=== PATIENT | male | born 1955 | race Caucasian/White ===

== ENCOUNTER 2019-11-10 13:56 | Emergency (ER) | payer OTHER, MEDICARE, SELFPAY ==
[2019-11-10 14:02] VITALS: BP 133/91; PULSE 98; RESP 17; TEMP 36.8; O2SAT 95; BMI 24.7
--- NOTE | 2019-11-10 14:32 | XR_ITS ---
WS: [id number] LEFT KNEE: 3 VIEW(S) TECHNIQUE: AP, oblique(s) and lateral. HISTORY: injury COMPARISON: 01/09/2016 Several screws are present at the LEFT knee joint. Posttraumatic osteoarthritis involving the medial and lateral compartments and the patellofemoral compartment. Hypertrophic osteophytes with joint spac e narrowing. No acute fractures are identified. Small suprapatellar effusion. No soft tissue abnormality. XR/XR knee LT 3V* [id number] IMPRESSION: Tricompartment osteoarthritis and postsurgical changes are stable. No fracture.
[2019-11-10 15:50] VITALS: RESP 17
--- NOTE | 2019-11-10 16:11 | ED_ITS ---
HPI - Extremity Injury (Lower) General: Chief Complaint: Extremity Injury, Lower Stated Complaint: LEFT KNEE PAIN Time Seen by Provider: 11/10/19 15:56 Source: patient Mode of arrival: ambulatory Limitations: no limitations History of Present Illness: HPI Narrative: Patient is a 63-year-old male here for complaints of left knee pain. Patient states he chronically has left knee pain and has been told previously that he needs a total knee replacement. Patient has had previous surgery on the knee already. He states earlier today he accidentally twisted the knee and is now having increased pain. States he is not bearing weight very well on the extremity. He has no other complaints at this time. Review of Systems Musc: Reports: joint pain; Denies: extremity pain, extremity swelling or joint swelling Neuro: Denies: numbness in extremities or sensory changes PFS ED PFSH: Medical History (Updated 11/10/19 @ 16:12 by MICHEAL Carranza) Alcohol use disorder, moderate, in sustained remission Major depressive disorder, recurrent severe without psychotic features Nicotine dependence, cigarettes, with other nicotine-induced disorders Obstructive sleep apnea (adult) (pediatric) Social History (Updated 07/07/19 @ 12:56 by Gay Escalera LPN) Smoking and tobacco status: current every day smoker cigarettes Quit status (tobacco): has tried quititng Smoking risk assessment/counseling performed?: Yes Physical Exam Const: COMMON NORMALS: no acute distress, average body habitus, patient oriented x3, no limitations, healthy appearing, alert and well nourished Extremity: GENERAL: Yes normal exam except as noted OTHER: TTP to anterior L knee; knee is arthritic; no swelling/effusion noted; no redness/warmth; NV intact Neuro: COMMON NORMALS: patient oriented x3, moves all extremities, no focal motor deficits and no sensory deficits noted SENSORIUM/ORIENTATION: Yes alert GAIT: Yes Unable to assess gait Skin: COMMON NORMALS: no rashes or lesions noted GENERAL SKIN EXAM: no rashes or lesions noted Course Vital Signs: Vital signs: Vital Signs Temperature 98.3 F 11/10/19 14:02 Pulse Rate 86 11/10/19 16:48 Respiratory Rate 16 11/10/19 16:48 Blood Pressure 129/88 11/10/19 16:48 Pulse Oximetry 95 11/10/19 16:48 MDM - Extremity Injury (Lower) Imaging Data^: L knee XR: Radiologist's impression: [address] [place] [address] XRay Report Signed Patient: Epi Macias Unit #: [id number] : [id number] Age/Sex: 63 / M ADM Date: 11/10/19 Loc: ER Room/Bed: Attending Dr: Ordering Provider/Ordering MD: Marci Lockwood Date of Service: 11/10/19 Procedure(s): XR knee LT 3V* [id number] Accession Number(s): [id number] Report Number: [id number] WS: [id number] LEFT KNEE: 3 VIEW(S) TECHNIQUE: AP, oblique(s) and lateral. HISTORY: injury COMPARISON: 01/09/2016 Several screws are present at the LEFT knee joint. Posttraumatic osteoarthritis involving the medial and lateral compartments and the patellofemoral compartment. Hypertrophic osteophytes with joint space narrowing. No acute fractures are identified. Small suprapatellar effusion. No soft tissue abnormality. XR/XR knee LT 3V* [id number] IMPRESSION: Tricompartment osteoarthritis and postsurgical changes are stable. No fracture. Dictated By: Juana Walters DO Signed By: uJana Walters DO Signed Date/Time: 11/10/191513 DD/ 12 Discharge Plan Discharge Patient Disposition: Home, Self-Care Clinical Impression: Injury of knee, left Qualifiers: Encounter type: initial encounter Qualified Code(s): S89.92XA - Unspecified injury of left lower leg, initial encounter Condition: Stable Prescriptions: New tramadol 50 mg tablet 50 mg PO Q6H PRN (Reason: pain) Qty: 10 RF: 0 No Action chlorthalidone 25 mg tablet 25 mg PO QAM RF: 0 amlodipine 5 mg tablet 5 mg PO DAILY RF: 0 Aspir-81 81 mg Tablet,Delayed Release (Dr/Ec) 81 mg PO DAILY RF: 0 potassium chloride 20 mEq tablet,ER particles/crystals 40 meq PO DAILY RF: 0 tamsulosin 0.4 mg capsule 0.4 mg PO BEDTIME RF: 0 metoprolol tartrate 50 mg tablet See Rx Instructions .ROUTE .COMPLEX RF: 0 tacrolimus 1 mg capsule 2 mg PO BID RF: 0 trazodone 100 mg tablet 150 mg PO BEDTIME RF: 0 Discharge Orders: Discharge Order (Routine); Ordered 11/10/19 Ordered By: Marci Lockwood Referrals: Stanton Quinteros [Primary Care Provider] - Discharge Activity: Use walker/crutches as instructed Activity Restrictions/Additional Instructions: Keep appointment with Dr. Demarco for later next month for evaluation. You can follow up with primary care in the meantime for any further concerns. Use ROSIO wrap/crutches as needed. Weight bearing as tolerated. 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
[2019-11-10 16:48] VITALS: BP 129/88; PULSE 86; RESP 16; O2SAT 95
== END 2019-11-10 16:49 | disposition home or self-care (01) ==
PROVIDERS: Emergency Provider Physician Assistant; PCP Internal Medicine
DX: M17.32 Unilateral post-traumatic osteoarthritis, left knee (principal); F17.210 Nicotine dependence, cigarettes, uncomplicated
CPT/HCPCS: 12345; 73562; 99282; 99283; E0114

== ENCOUNTER → 2019-12-06 10:17 | Outpatient (BNVA) | payer MEDICARE, SELFPAY | PROVIDERS: PCP Internal Medicine; Visit Provider Specialist | DX: M25.562 Pain in left knee (principal); M25.561 Pain in right knee; Z94.4 Liver transplant status | CPT/HCPCS: 73560; 73565 ==

== ENCOUNTER → 2021-10-15 08:58 | Outpatient (BNVA) | payer OTHER, SELFPAY | PROVIDERS: PCP Family Medicine; Referring Provider Family Medicine; Visit Provider Surgery | DX: R13.10 Dysphagia, unspecified (principal); K63.5 Polyp of colon; K43.2 Incisional hernia without obstruction or gangrene | CPT/HCPCS: 99204 ==

== ENCOUNTER 2021-11-13 12:55 | Emergency (ER) | payer OTHER, MEDICARE, SELFPAY ==
[2021-11-13 13:01] VITALS: BP 136/88; PULSE 89; RESP 18; TEMP 36.4; O2SAT 95; BMI 27.8
--- NOTE | 2021-11-13 13:30 | W.ED.UPPEXIN ---
HPI - Extremity Injury (Upper) General: Chief Complaint: Extremity Injury, Upper Stated Complaint: fell, left elbow pain Time Seen by Provider: 11/13/21 13:08 Source: patient Mode of arrival: ambulatory Limitations: no limitations History of Present Illness: Patient is a nice 65-year-old female presents to ED today for evaluation of a left elbow injury that he sustained yesterday after tripping over his dog. Patient has noticed swelling around the joint. He is not having any numbness, tingling, loss of sensation. No color or temperature changes noted to the extremity. He has no other injuries or complaints at this time. MD complaint: injury to: left and elbow Onset (ago): day(s) (yesterday) Place: home Severity: moderate Relieving factors: immobilization Exacerbating factors: movement of extremity Context: fall Associated symptoms: Reports no associated symptoms; Denies neck pain or weakness in extremities Review of Systems Musc: Reports: joint pain (L elbow), joint swelling (L elbow) and limited range of motion; Denies: neck pain, back pain, extremity pain, extremity swelling, joint redness or joint warmth Neuro: Denies: numbness in extremities, weakness in extremities or sensory changes PFS ED PFSH: Medical History Alcohol use disorder, moderate, in sustained remission Colon polyps COPD (chronic obstructive pulmonary disease) History of liver cancer Hypertension Incisional hernia Major depressive disorder, recurrent severe without psychotic features NHL (non-Hodgkin's lymphoma) received chemotherapy Nicotine dependence, cigarettes, with other nicotine-induced disorders Obstructive sleep apnea (adult) (pediatric) Psychiatric care Stage 3 chronic kidney disease Surgical History History of colonoscopy 5 years History of esophagogastroduodenoscopy 5 years History of left hip replacement History of open reduction and internal fixation (ORIF) procedure History of repair of anterior cruciate ligament of left knee History of right knee joint replacement Liver transplant recipient Social History Smoking and tobacco status: former smoker Quit status (tobacco): has quit using tobacco Smoking risk assessment/counseling performed?: Yes Alcohol intake: former Physical Exam Const: COMMON NORMALS: no acute distress, patient oriented x3, no limitations, alert and well nourished GENERAL APPEARANCE: cooperative Extremity: COMMON NORMALS: capillary refill normal GENERAL: Yes normal exam except as noted LEFT UPPER EXTREMITY: Yes elbow joint (TTP over radial head; joint effusion present; cannot fully extend) Left elbow: Yes neurovascular exam (normal) Neuro: COMMON NORMALS: patient oriented x3, moves all extremities, no focal motor deficits and no sensory deficits noted SENSORIUM/ORIENTATION: Yes alert Skin: COMMON NORMALS: no rashes or lesions noted GENERAL SKIN EXAM: no rashes or lesions noted TRAUMA: no lacerations or abrasions Course Vital Signs: Vital signs: Vital Signs Temperature 97.5 F L 11/13/21 13:01 Pulse Rate 89 11/13/21 13:01 Respiratory Rate 18 11/13/21 13:01 Blood Pressure 136/88 11/13/21 13:01 Pulse Oximetry 95 11/13/21 13:01 MDM - Extremity Injury (Upper) Medical Decision Making Patient has a left radial head fracture. We will place him in a splint/sling and have him follow-up with orthopedics. Lab Data Radiology Impressions Elbow X-Ray 11/13/21 13:37 Impression: 1. Minimal impacted fracture of the left radial head. 2. Positive posterior fat pad sign and winged anterior fat pad sign Discharge Plan Discharge Patient Disposition: Home Clinical Impression: Closed fracture of head of left radius Qualifiers: Encounter type: initial encounter Fracture alignment: nondisplaced Qualified Code(s): S52.125A - Nondisplaced fracture of head of left radius, initial encounter for closed fracture Condition: Stable Prescriptions: New hydrocodone-acetaminophen 5-325 mg tablet 1 tab PO Q6H PRN (Reason: pain) Qty: 14 0RF No Action cyclobenzaprine 10 mg tablet 10 mg PO TID 0RF fluorouracil 5 % cream 1 applic topical BID 0RF metoprolol tartrate 50 mg tablet 50 mg PO BID 0RF omeprazole 40 mg capsule,delayed release(DR/EC) 40 mg PO DAILY 0RF tamsulosin 0.4 mg capsule 0.4 mg PO DAILY 0RF albuterol sulfate 90 mcg/actuation aerosol powdr breath activated 2 inh INHALATION Q6H PRN0RF budesonide-formoterol [Symbicort] 80-4.5 mcg/actuation HFA aerosol inhaler 2 puff INHALATION Q12H 0RF furosemide 20 mg tablet 20 mg PO QAM 0RF fluoxetine 20 mg capsule 60 mg PO DAILY 90 Days Qty: 270 0RF trazodone 100 mg tablet See Rx Instructions .ROUTE .COMPLEX 90 Days Qty: 135 0RF Dose Instruction: TAKE 1 1/2 TABLET BY MOUTH DAILY AT BEDTIME Rx Instructions: TAKE 1 1/2 TABLET BY MOUTH DAILY AT BEDTIME chlorthalidone 25 mg tablet 25 mg PO QAM 0RF Aspir-81 81 mg Tablet,Delayed Release (Dr/Ec) 81 mg PO DAILY 0RF potassium chloride 20 mEq tablet,ER particles/crystals 40 meq PO DAILY 0RF metoprolol tartrate 50 mg tablet See Rx Instructions .ROUTE .COMPLEX 0RF Rx Instructions: 50 MG PO IN THE AM AND 75MG PO QPM tacrolimus 1 mg capsule 2 mg PO BID 0RF amlodipine 5 mg tablet 10 mg PO DAILY 0RF Rx Instructions: PT STATES HE HAS STARTED TAKING ONE TAB EVERY OTHER DAY Discharge Orders: Discharge ED (Routine); Ordered 11/13/21 Ordered By: Marci Lockwood Referrals: Daphne Gauthier MD [Primary Care Provider] - Patient Instructions: Elbow Fracture (DC) Coding Level of Care Code ED Communications Department Head for Chg Fwd Exam Expanded Problem Focused
--- NOTE | 2021-11-13 13:37 | XR_ITS ---
WS: [id number] Left elbow, 3 views, 11/13/2021 Clinical Data: trauma, swelling Comparison: None. Findings: There may be a minimally impacted fracture of the left radial head. There is a positive posterior fat pad sign. The olecranon and distal humerus appear normal. There is a winged anterior fat pad sign which can be seen with trauma XR/XR elbow LT min 3V* [id number] Impression: 1. Minimal impacted fracture of the left radial head. 2. Positive posterior fat pad sign and winged anterior fat pad sign
--- NOTE | 2021-11-14 14:09 | DCPLANNER ---
Addendum entered by Makenzie Hlal 11/23/21 06:24: Patient had a follow up appointment scheduled for 11.20.21 with ortho - patient did attend appointment. Original Note: customer development manager had message to schedule a follow up appointment for patient with ortho. customer development manager sent patients information to the front office staff at ortho. Patients information will be printed and reviewed. Clinic will call patient with appointment information.
== END 2021-11-13 14:55 | disposition home or self-care (01) ==
PROVIDERS: Emergency Provider Physician Assistant; PCP Family Medicine
DX: S52.125A Nondisplaced fracture of head of left radius, initial encounter for closed fracture (principal); M25.522 Pain in left elbow; W01.0XXA Fall on same level from slipping, tripping and stumbling without subsequent striking against object, initial encounter
CPT/HCPCS: 73080; 99283

== ENCOUNTER 2021-11-20 11:40 | Outpatient (CLI) | payer OTHER, MEDICARE, SELFPAY ==
--- NOTE | 2021-11-20 11:54 | CT_ITS ---
WS: [id number] CT CHEST WITH INTRAVENOUS CONTRAST HISTORY: DYSPNEA ON EXERTION/ELEVATED D DIMER TECHNIQUE: Contiguous 5 mm axial imaging performed on the thorax. Coronal and sagittal reformats are submitted. All CT scans at [facility] use at least one of these dose optimization techniques: automated exposure control; mA and/or kV adjustment per patient size (includes targeted exams where dose is matched to clinical indication); or iterative reconstruction. CONTRAST: Omnipaque 300; 50 mL IV. DLP: 775.01 mGy.cm COMPARISON: 09/18/2011 Lungs and central airway: New well-circumscribed noncalcified 6 mm nodule RIGHT lower lobe. There is an additional adjacent 2 millimeter nodule which is also noncalcified. Mild pulmonary hyperexpansion from emphysema. Pleura: Normal. No pleural effusion. Heart and pericardium: Normal size heart with no pericardial effusion. Mediastinum and renetta: No mediastinal or hilar adenopathy. There is mild diffuse esophageal wall thick ening. There is also fluid in the mid to distal esophagus. Vessels: Mild atherosclerotic plaque within the aorta and proximal great vessels. Normal size pulmona ry artery. Chest wall and lower neck: No soft tissue masses. Upper abdomen: Prior cholecystectomy. Normal RIGHT adrenal gland. Very mild thickening of the LEFT ad renal gland. Prior hepatic transplant. Spleen is enlarged but incompletely visualized. Osseous structures: No destructive process. CT/CT chest w con* [id number] IMPRESSION: 1. New, noncalcified 6 mm RIGHT lower lobe pulmonary nodule with an adjacent 2 mm nodule. These nodules were not present in 2012. Recommend PET/CT imaging o r short-term chest CT follow-up in 3-4 months. 2. No adenopathy. 3. Mild diffuse esophageal wall thickening and fluid in the esophagus. Probabl y from reflux disease and esophagitis. 4. No adenopathy.
[2021-11-20 12:38] LABS: Blood Urea Nitrogen 20 mg/dL (8-23); Glomerular Filtration Rate 55.1 mL/min (90-130)
[2021-11-20] MEDS: iohexol 300 mg/mL 100 mL Btl IV (12:56)
== END 2021-11-20 11:41 | disposition home or self-care (01) ==
LOC: RAD 11:45
PROVIDERS: PCP Family Medicine; Visit Provider Family Medicine
DX: Z01.89 Encounter for other specified special examinations (principal); R06.09 Other forms of dyspnea; R91.8 Other nonspecific abnormal finding of lung field; S50.02XA Contusion of left elbow, initial encounter; W01.0XXA Fall on same level from slipping, tripping and stumbling without subsequent striking against object, initial encounter
CPT/HCPCS: 71260; 73080; 82565; 84520; 99203; 99213

== ENCOUNTER → 2021-12-05 12:44 | Outpatient (BNVA) | payer OTHER, SELFPAY | PROVIDERS: PCP Family Medicine; Visit Provider Internal Medicine Cardiovascular Disease | DX: R06.02 Shortness of breath (principal); I12.9 Hypertensive chronic kidney disease with stage 1 through stage 4 chronic kidney disease, or unspecified chronic kidney disease; F17.200 Nicotine dependence, unspecified, uncomplicated; N18.30 Chronic kidney disease, stage 3 unspecified; Z94.4 Liver transplant status; G47.33 Obstructive sleep apnea (adult) (pediatric); J41.0 Simple chronic bronchitis; M17.12 Unilateral primary osteoarthritis, left knee | CPT/HCPCS: 99204 ==

== ENCOUNTER 2022-01-16 06:54 | Day surgery (SDC) | payer OTHER, SELFPAY ==
[2022-01-11 12:37] VITALS: BMI 27.1
[2022-01-16 07:13] VITALS: BP 153/94; PULSE 78; RESP 18; TEMP 36.4; O2SAT 94
[2022-01-16] MEDS: sodium chloride 0.9% 1,000 ML 30 ML IV (07:27)
--- NOTE | 2022-01-16 07:47 | ANES.PREANE2 ---
Pre-Anesthetic Assessment Height/Weight: Height 1.8 m Weight 88.451 kg Temp Pulse Resp BP Pulse Ox O2 Del Method 97.5 F L 78 18 153/94 94 01/16/22 07:13 01/16/22 07:13 01/16/22 07:13 01/16/22 07:13 01/16/22 07:13 01/16/22 07:13 Preop Diagnosis: upper gi symptoms Operation Date: 01/16/22 08:30 Proposed Procedures p EGD Dilation W/ Balloon [id number]/[id number]/k63.5/r13.10(Not Applicable) - Norberto Rashid MD s Colonoscopy(Not Applicable) - Norberto Rashid MD Familial anesthetic complications: none Was Beta Tiara taken within 24 hours: Yes Was Clonidine taken within 24 hours: N/A Last intake: Intake Last Liquid Date 01/15/22 Last Liquid Time 22:00 Last Solid Date 01/14/22 Last Solid Time 19:00 Social Alcohol and No tobacco Exam alert, oriented x 3, clear to auscultation bilaterally and regular rate & rhythm Airway Submandibular: within normal limits Cervical ROM: within normal limits Mallampati: Class II Dentition: false Pulmonary Chronic Obstructive Pulmonary Disease, Sleep Apnea and Shortness of Breath CV/HEM Hypertension NHL Chronic Renal Insufficiency Hepatic Hx of liver cancer s/p liver transplant GI Gastroesophageal Reflux Disease (Well controlled ) Metabolic None reported Musc/skel Osteoarthritis/DJD Neuropsych Depression Anesthetic Plan ASA status: 3 Anesthesia: Anesthesia Evaluation, General and MAC Other: I discussed with the patient risks, goals, and benefits of MAC and general anesthesia. We discussed spectrum of MAC anesthesia including conversion to general as well as possibility of recall of intraoperative stimuli including discomfort/pain. Patient agrees to proceed with MAC. Risk of > 500 ml blood loss (7ml/kg in children): No Medications/Allergies Home Medications Medication Instructions Recorded Confirmed Last Taken Type aspirin 81 mg tablet,delayed 81 mg PO DAILY 11/10/19 01/16/22 01/15/22 History release (Aspir-) tacrolimus 1 mg capsule, 2 mg PO BID 11/10/19 01/16/22 01/16/22 History immediate-release albuterol sulfate 90 mcg/actuation 2 inh inhalation Q6H PRN Allergy 12/06/19 01/16/22 01/16/22 History breath activated powder inhaler Symptoms furosemide 20 mg tablet 20 mg PO QAM 09/10/21 01/16/22 01/16/22 History amlodipine 5 mg tablet 10 mg PO DAILY 10/15/21 01/16/22 01/16/22 History cholecalciferol (vitamin D3) 25 25 mcg PO DAILY 12/05/21 01/16/22 01/15/22 History mcg (1,000 unit) capsule fluticasone 250 mcg-salmeterol 50 1 inh inhalation BID 12/05/21 01/16/22 01/16/22 History mcg/dose blistr powdr for inhalation (Wixela Inhub) folic acid 1 mg tablet 1 mg PO DAILY 12/05/21 01/16/22 01/16/22 History metoprolol tartrate 50 mg tablet 100 mg PO BID 12/05/21 01/16/22 01/16/22 History potassium chloride 20 mEq 40 meq PO BID 12/05/21 01/16/22 01/16/22 History tablet,extended release(part/cryst) fluoxetine 40 mg capsule 80 mg PO DAILY 90 days #180 caps 12/12/21 01/16/22 01/16/22 Rx trazodone 100 mg tablet See Rx Instructions .Route 12/12/21 01/16/22 01/15/22 Rx .COMPLEX 90 days #135 tabs Allergies Allergy/AdvReac Type Severity Reaction Status Date / Time No Known Allergies Allergy Verified 01/16/22 07:09 Current Medications Generic Name Dose Route Start Last Admin Trade Name Freq PRN Reason Stop Dose Admin Sodium Chloride 1,000 mls @ 30 mls/hr 01/16/22 07:15 01/16/22 07:27 Sodium Chloride 0.9% IV 01/17/22 07:14 30 mls/hr .Q24H KANG Administration PFSH Anesthesia Medical History Alcohol use disorder, moderate, in sustained remission Colon polyps COPD (chronic obstructive pulmonary disease) History of liver cancer Hypertension Incisional hernia Major depressive disorder, recurrent severe without psychotic features NHL (non-Hodgkin's lymphoma) received chemotherapy Nicotine dependence, cigarettes, with other nicotine-induced disorders Obstructive sleep apnea (adult) (pediatric) Psychiatric care Skin cancer Stage 3 chronic kidney disease Surgical History History of colonoscopy 5 years History of esophagogastroduodenoscopy 5 years History of left hip replacement History of open reduction and internal fixation (ORIF) procedure History of repair of anterior cruciate ligament of left knee History of right knee joint replacement History of surgery on lower extremity femur Liver transplant recipient S/P knee replacement S/P skin cancer resection Family History Brother CAD (coronary artery disease) Hypertension Sister CAD (coronary artery disease) Hypertension Social History Smoking and tobacco status: current every day smoker (trying to quit) Smoking risk assessment/counseling performed?: Yes Alcohol intake: former Data Anesthesia Cardiac Studies: No Data to Display
--- NOTE | 2022-01-16 08:32 | W.PM.OPSFHP ---
Same Day Surgery H&P Indication for Procedure/HPI DATE OF PROCEDURE: January 16, 2022 CHIEF COMPLAINT/INDICATIONFOR SURGICAL PROCEDURE: egd/colon PREOP DIAGNOSIS: upper gi symptoms PLANNED PROCEDURE: Operation Date: 01/16/22 08:30 Proposed Procedures p EGD Dilation W/ Balloon [id number]/k63.5/r13.10(Not Applicable) - Norberto Rashid MD s Colonoscopy(Not Applicable) - Norberto Rashid MD Medications/Allergies* Home Medications Medication Instructions Recorded Confirmed Type aspirin 81 mg tablet,delayed 81 mg PO DAILY 11/10/19 01/16/22 History release (Aspir-) tacrolimus 1 mg capsule, 2 mg PO BID 11/10/19 01/16/22 History immediate-release albuterol sulfate 90 mcg/actuation 2 inh inhalation Q6H PRN Allergy 12/06/19 01/16/22 History breath activated powder inhaler Symptoms furosemide 20 mg tablet 20 mg PO QAM 09/10/21 01/16/22 History amlodipine 5 mg tablet 10 mg PO DAILY 10/15/21 01/16/22 History cholecalciferol (vitamin D3) 25 25 mcg PO DAILY 12/05/21 01/16/22 History mcg (1,000 unit) capsule fluticasone 250 mcg-salmeterol 50 1 inh inhalation BID 12/05/21 01/16/22 History mcg/dose blistr powdr for inhalation (Wixela Inhub) folic acid 1 mg tablet 1 mg PO DAILY 12/05/21 01/16/22 History metoprolol tartrate 50 mg tablet 100 mg PO BID 12/05/21 01/16/22 History potassium chloride 20 mEq 40 meq PO BID 12/05/21 01/16/22 History tablet,extended release(part/cryst) Allergies/Adverse Reactions Allergy/AdvReac Type Severity Reaction Status Date / Time No Known Allergies Allergy Verified 01/16/22 07:09 Current Medications: Generic Name Dose Route Start Last Admin Trade Name Freq PRN Reason Stop Dose Admin Sodium Chloride 1,000 mls @ 30 mls/hr 01/16/22 07:15 01/16/22 07:27 Sodium Chloride 0.9% IV 01/17/22 07:14 30 mls/hr .Q24H KANG Administration Pertinent History/Comorbid Conditions* Medical History (Updated 12/09/21 @ 15:16 by Rafaela Nieves MD) Alcohol use disorder, moderate, in sustained remission Colon polyps COPD (chronic obstructive pulmonary disease) History of liver cancer Hypertension Incisional hernia Major depressive disorder, recurrent severe without psychotic features NHL (non-Hodgkin's lymphoma) received chemotherapy Nicotine dependence, cigarettes, with other nicotine-induced disorders Obstructive sleep apnea (adult) (pediatric) Psychiatric care Skin cancer Stage 3 chronic kidney disease Surgical History (Updated 12/09/21 @ 15:16 by Rafaela Nieves MD) History of colonoscopy 5 years History of esophagogastroduodenoscopy 5 years History of left hip replacement History of open reduction and internal fixation (ORIF) procedure History of repair of anterior cruciate ligament of left knee History of right knee joint replacement History of surgery on lower extremity femur Liver transplant recipient S/P knee replacement S/P skin cancer resection Family History (Updated 12/05/21 @ 13:04 by Emilia Au RN) CAD (coronary artery disease) Brother Sister Hypertension Brother Sister Social History Smoking and tobacco status: current every day smoker (trying to quit) Smoking risk assessment/counseling performed?: Yes Alcohol intake: former Pertinent Exam Findings alert, oriented x 3 and regular rate & rhythm Recommendations Surgery/Procedure today Coding Level of Care Code 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
[2022-01-16 09:36] VITALS: BP 121/88; PULSE 75; RESP 14; TEMP 36.3; O2SAT 98
[2022-01-16 09:45] VITALS: BP 143/91; PULSE 78; RESP 18; O2SAT 98
--- NOTE | 2022-01-16 13:07 | ANE.PACU2 ---
Inpatient post-anesthesia follow up: Airway intact: Yes Vital signs: Temperature 97.3 F Pulse Rate 78 Respiratory Rate 18 Blood Pressure 143/91 Pulse Oximetry 98 Oxygen Delivery Me thod Room Air Oxygen Flow Rate Fraction of Inspir ed Oxygen Hydration adequate: Yes Nausea and vomiting: No Pain level: 1 Mental status: Baseline
== END 2022-01-16 10:00 | disposition home or self-care (01) ==
PROVIDERS: PCP Family Medicine; Visit Provider Surgery
PROC: 0DJD8ZZ Inspection of Lower Intestinal Tract, Via Natural or Artificial Opening Endoscopic (ICD-10-PCS; CPT 45378; 2022-01-16 08:30)
PROC: 0DJ08ZZ Inspection of Upper Intestinal Tract, Via Natural or Artificial Opening Endoscopic (ICD-10-PCS; CPT 43235; 2022-01-16 08:30)
DX: R13.10 Dysphagia, unspecified (principal); D12.2 Benign neoplasm of ascending colon; D12.4 Benign neoplasm of descending colon; D12.5 Benign neoplasm of sigmoid colon; K57.30 Diverticulosis of large intestine without perforation or abscess without bleeding; D12.8 Benign neoplasm of rectum; K29.50 Unspecified chronic gastritis without bleeding; B96.81 Helicobacter pylori [H. pylori] as the cause of diseases classified elsewhere; K22.70 Barrett's esophagus without dysplasia; K22.2 Esophageal obstruction; J44.9 Chronic obstructive pulmonary disease, unspecified; G47.30 Sleep apnea, unspecified; Z85.05 Personal history of malignant neoplasm of liver; Z94.4 Liver transplant status; K21.9 Gastro-esophageal reflux disease without esophagitis; G47.33 Obstructive sleep apnea (adult) (pediatric); Z92.21 Personal history of antineoplastic chemotherapy; I12.9 Hypertensive chronic kidney disease with stage 1 through stage 4 chronic kidney disease, or unspecified chronic kidney disease; N18.30 Chronic kidney disease, stage 3 unspecified
CPT/HCPCS: 43239; 45380; 45385; 88305; 88342; J2704; J7030

== ENCOUNTER → 2022-01-22 09:40 | Outpatient (BNVA) | payer OTHER, SELFPAY | PROVIDERS: PCP Family Medicine; Visit Provider Surgery | DX: Z09 Encounter for follow-up examination after completed treatment for conditions other than malignant neoplasm (principal) | CPT/HCPCS: 99213 ==

== ENCOUNTER 2022-02-01 07:36 | Outpatient (CLI) | payer OTHER, SELFPAY ==
[2022-02-01 09:36] VITALS: BMI 26.4
--- NOTE | 2022-02-01 09:37 | ECG_ITS ---
[facility] [place] Date: 2022-02-01 Pat Name: Epi Macias Department: Room: Gender: Male Mental Tester: : 1955 Requested By: Rafaela Nieves Order Number: [id number] Navjot MD: Vladimir Fu M.D. Interpretive Statements NAME OF STUDY: LEXISCAN SESTAMIBI STRESS TEST INDICATION: [EXERTIONAL SHORTNESS OF BREATH] Procedure: At the baseline, the blood pressure was 154/87 mmHg with a heart rate of 78 bpm. The electrocardiogram showed normal sinus rhythm, normal axis with normal ST and T's. PVCs are seen The Lexiscan was infused over a period of 20 seconds. A total of 0.4 mg of Lexiscan was infused. The stress phase was continued for a total of 5 minutes. Heart rate was at the end of stress phase was 90 bpm and a blood pressure of 125/84 mmHg. The EKG at the peak infusion revealed since normal sinus rhythm with no significant ST-T wave changes. Sestamibi was injected 20 seconds after the Lexiscan infusion. Blood pressure at the end of recovery phase was 132/82 mmHg with a heart rate of 87 bpm. Conclusion: 1. Normal EKG response to Lexiscan infusion 2. No Lexiscan induced chest pain or cardiac arrhythmia. 3. Normal blood pressure and heart rate response. 4. Sestamibi/sestamibi perfusion scan pending; see separate report. Electronically Signed On 02-04-2022 0:24:22 CDT by Vladimir Fu M.D. [id number]
--- NOTE | 2022-02-01 09:37 | NMCV_ITS ---
NM ciro perf SPECT r/s* [id number] Epi Macias Age: 66 Gender: M : 1955 Exam Date: 02/01/2022 10:46 Ordering Phys: Rafaela Nieves MD ([email or web address]) Technologist: SHAMA Gooden Exam Location: [facility] Indications: SHORTNESS OF BREATH STRESS TEST Please see separate stress test report in [facility] for full findings IMAGE PROTOCOL Rest/Stress 1 Lexiscan Day Radiopharmaceutical Dose (mCi) Administration Site Administered by Rest: Tc-99m 10.9 IV SHAMA Miranda Sestamibi Stress:Tc-99m 32.3 IV SHAMA Miranda Sestamibi Rest: 01-Feb-2022 60 Discovery 630 Stress: 01-Feb-2022 30 Discovery 630 Images obtained in supine and prone position. 0.4mg Lexiscan. SPECT RESULTS Technical Quality: Excellent Raw Data Analysis: Normal Image Corrections: No attenuation or motion correction applied Summed Stress Score: 9 Summed Rest Score: 11 Summed Difference Score: 2 PERFUSION FINDINGS Large sized perfusion abnormality of mild severity of basal to apical inferior, mid to apical inferolateral, basal to mid inferoseptal lacey on rest images with improved tracer uptake in inferior and septal lacey and mild reversibility in mid inferolateral and apical lateral lacey. FUNCTIONAL RESULTS (calculated via Gated SPECT) Stress Image LV EF (%): 57 Stress EDV (mL):138 TID: 1.05 Stress ESV (mL):59 FUNCTIONAL FINDINGS: The left ventricle is normal in size. Transient Ischemia Dilatation of 1.1. The left ventricular ejection fraction is normal with a value of 57%. There is normal left ventricular wall thickening. Normal end-diastolic and end-systolic volumes. IMPRESSIONS 1. Medium sized paradoxical perfusion abnormality of basal to apical inferior and basal to mid inferoseptal lacey. This is likely suggestive of attenuation artifact. 2. Small sized partially reversible perfusion abnormality of mild severity of mid inferolateral and apical lateral lacey. This may represent small area of ischemia in circumflex artery territory or attenuation artifact. 3. Overall left ventricular systolic function is normal without regional wall motion abnormalities, LVEF=57%. 4. EKG portion of the study will be reported separately. Please refer to separate report for details. Rafaela Nieves MD (Electronically Signed) Final Date: 07 February 2022 16:55 S
[2022-02-01] MEDS: regadenoson 0.4 Mg/5 ml Syringe IVP (11:55)
[2022-02-01 12:04] VITALS: BP 128/85; PULSE 80
== END 2022-02-01 07:37 | disposition home or self-care (01) ==
PROVIDERS: PCP Family Medicine; Visit Provider Internal Medicine Cardiovascular Disease
DX: R06.02 Shortness of breath (principal)
CPT/HCPCS: 78452; 93017; A9500; J2785

== ENCOUNTER 2022-02-01 07:36 | Outpatient (CLI) | payer OTHER, SELFPAY ==
--- NOTE | 2022-02-01 08:00 | USCV_ITS ---
Epi Macias Age: 66 Gender: M : 1955 Exam Date: 02/01/2022 08:01 Ordering Phys: Rafaela Nieves MD ([email or web address]) Technologist: Eliana Rocha [place] [facility] [place] Indication: Sob and syncope BP: 135 / 77 HR: 77 Rhythm: Sinus Technical Quality: Adequate MEASUREMENTS (Male / Female) Normal Values 2D ECHO LV Diastolic Diameter PLAX 4.8 cm 4.2 - 5.9 / 3.9 - 5.3 cm LV Systolic Diameter PLAX 3.6 cm IVS Diastolic Thickness 1.3 cm 0.6 - 1.0 / 0.6 - 0.9 cm IVS Systolic Thickness 1.5 cm LVPW Diastolic Thickness 1.1 cm 0.6 - 1.0 / 0.6 - 0.9 cm LVPW Systolic Thickness 1.5 cm LVOT Diameter 2.1 cm LV Ejection Fraction 2D Teich 48.8 % LV Ejection Fraction MOD 2C 47.7 % LV Ejection Fraction 2C AL 47.4 % LA Diameter 3.0 cm LA Width 4.1 cm LA Height 5.6 cm RA Width 4.1 cm RA Height 5.1 cm Aorta at Sinotubular Diameter 3.8 cm IVC Diameter 1.9 cm M-MODE MV E Point Septal Separation 0.6 cm DOPPLER MV Peak Velocity 73.0 cm/s MV Area PHT 4.2 cm squared Mitral E to A Ratio 1.1 MV E' Velocity 37.0 cm/s Mitral E to MV E' Ratio 14.1 Mitral E to LV E' Lateral Ratio 13.0 Mitral E to LV E' Septal Ratio 15.4 TR Peak Velocity 130.7 cm/s TR Peak Gradient 6.8 mmHg Right Atrial Pressure 3.0 mmHg Pulmonary Artery Systolic Pressu 9.8 mmHg FINDINGS Left Ventricle Normal left ventricular size, systolic function and wall thickness, with no regional wall motion abnormalities. Left ventricular ejection fraction is estimated at 55%. Grade II diastolic dysfunction, moderately elevated filling pressures. Right Ventricle Normal right ventricular size and systolic function. Right ventricular systolic pressure 9.8 mmHg. Right Atrium Normal right atrial size. Left Atrium Mildly increased left atrial size. Mitral Valve Structurally normal mitral valve. No mitral valve stenosis. Trace mitral valve regurgitation. Aortic Valve Aortic valve not well visualized. Probably trileaflet aortic valve. Aortic valve was not assessed by doppler. Tricuspid Valve Structurally normal tricuspid valve. Trace tricuspid valve regurgitation. Pulmonic Valve Structurally normal pulmonic valve. Pericardium No pericardial effusion. Aorta Normal size aortic root and proximal ascending aorta. IVC Normal IVC dimension with >50% respiratory change of the inferior vena cava. CONCLUSIONS 1. Normal left ventricular size, systolic function and wall thickness, with no regional wall motion abnormalities. Left ventricular ejection fraction is estimated at 55%. Grade II diastolic dysfunction, moderately elevated filling pressures. 2. Normal right ventricular size and systolic function. 3. When compared to prior echocardiogram dated 05/18/2018, there may not have been any significant change. Rafaela Nieves MD (Electronically Signed) Final Date: 06 February 2022 12:46 S
== END 2022-02-01 07:37 | disposition home or self-care (01) ==
LOC: RAD 07:37
PROVIDERS: PCP Family Medicine; Visit Provider Internal Medicine Cardiovascular Disease
DX: R06.02 Shortness of breath (principal); R55 Syncope and collapse
CPT/HCPCS: 93306

== ENCOUNTER → 2022-02-27 14:57 | Outpatient (BNVA) | payer OTHER, SELFPAY | PROVIDERS: PCP Family Medicine; Visit Provider Internal Medicine Cardiovascular Disease | DX: R06.02 Shortness of breath (principal); I12.9 Hypertensive chronic kidney disease with stage 1 through stage 4 chronic kidney disease, or unspecified chronic kidney disease; F17.200 Nicotine dependence, unspecified, uncomplicated; N18.30 Chronic kidney disease, stage 3 unspecified; Z94.4 Liver transplant status; G47.33 Obstructive sleep apnea (adult) (pediatric); J41.0 Simple chronic bronchitis; M17.12 Unilateral primary osteoarthritis, left knee | CPT/HCPCS: 99214 ==

== ENCOUNTER → 2022-09-04 15:14 | Outpatient (BNVA) | payer OTHER, SELFPAY | PROVIDERS: PCP Family Medicine; Visit Provider Nurse Practitioner Family | DX: R55 Syncope and collapse (principal) | CPT/HCPCS: 99214 ==

== ENCOUNTER → 2023-03-18 10:13 | Outpatient (BNVA) | payer OTHER, SELFPAY | PROVIDERS: PCP Family Medicine; Referring Provider Family Medicine; Visit Provider Surgery | DX: K63.5 Polyp of colon (principal) | CPT/HCPCS: 99204; 99214 ==

== ENCOUNTER 2023-04-16 05:50 | Outpatient (CLI) | payer OTHER, SELFPAY ==
[2023-04-16] VITALS (17 sets, daily range): BP systolic 133–171; BP diastolic 88–116; PULSE 65–75; RESP 14–23; TEMP 36.8; O2SAT 89–97; BMI 26.3
--- NOTE | 2023-04-16 06:00 | XACV_ITS ---
Exam Room: 2 Ht: 180 cm Wt: 86 kg BSA: 2.08 m2 Gender: Male : 1955 Any Known Allergies: No known allergies Exam Priority: Routine Procedure(s): Procedure Description: Diagnostic procedure Procedure Description: Left Heart Catheterization Procedure Description: Coronary Angiography Diagnostic Cath Status: Elective Diagnostic Findings * INDICATION: Worsening dyspnea on exertion/abnormal stress test. * Non-obstructive coronary artery disease. * No significant disease seen in left main artery, LAD, left circumflex artery or RCA. * First Obtuse Marginal Branch Segment: mild 40% stenosis, JESUS MANUEL: 3 flow. * Coronary angiography shows right dominance. Conclusions 1. Non-obstructive coronary artery disease. Recommendations * Aggressive risk factor modification. * Outpatient cardiology follow up in 4 weeks. Diagnostic RX Recommendation: medical therapy and/or counseling Pressures Phase:Rest AO : 120 / 69 ( 91 ) @ 8:47:00 AM 120 / 75 ( 96 ) @ 8:52:00 AM 105 / 56 ( 82 ) @ 8:52:00 AM LV : 69 / 17 / 6 @ 8:52:00 AM Valves Phase:DefaultPhase AV : 0.0 @ 8:11:25 AM 0.0 @ 8:11:25 AM AV Mean Gradient: 0.0 @ 8:11:25 AM 0.0 @ 8:11:25 AM Clinical Evaluation EBL: 5mL-10mL Procedural Details Pre-Procedure Time Out. Identified patient by full name and date of as verbalized by the patient/guarantor. Does the consent match the physician's order: Yes. Accurate & Complete Informed Consent: Yes. Inpatient/Outpatient History & Physical on Chart: Yes. If H&P is completed, is and addenduem needed: Yes; If yes, is the addendum complete: Yes. Visualize and Verify Site with Patient/Guarantor: N/A. Relevant Radiology Images available: Yes. Pre-op teaching completed and patient verbalized understanding. The risks, benefits, and alternatives of sedation and/or procedure were discussed by physician. The patient agrees to continue. Procedure started. Physician arrived. Current Diagnosis : Chest Pain. [facility] Clinical Fraility Score: 3: Managing Well. Systems Management Consultant Indications: Worsening Angina. Chest Pain Symptom Assessment: Atypical Angina. Correct patient, site and procedure confirmed by cath team. Current diagnosis: Chest Pain. PERRLA. Strong, equal hand reservations and ticketing agent bilaterally. Lungs clear x 5 lobes. IV Site on Arrival: 20 gauge in the left anticubital. IV Fluids: 0.9% NaCl at KVO. 0 mL infused prior to construction laborer. Pre Procedural Pulses: bilateral dorsalis pedis was 3+. Pre Procedural Pulses: bilateral posterior tibial was 3+. Pre Procedural Pulses: bilateral radial was 3+. Oxygen started at 2liters/min via nasal canula. right groin was prepped with chloroprep then draped in the usual sterile fashion. right radial was prepped with chloroprep then draped in the usual sterile fashion. Baseline sample Acquired. HR: 74 BPM. Physician scrubbed in. Immediate Pre-Procedure Time Out. Correct Patient: Yes; Correct Procedure: Yes; Correct Site: Yes; Correct Patient Position: Yes; Correct Supplies: Yes; Dried Flammable Prep: Yes; Blood Products Available: N/A;. Lidocaine 1% infiltrated to the right radial. Arterial access obtained. A 5 albanian TIG catheter in over wire. Multiple views taken of left coronary artery. Catheter removed over the exchange wire. A 5 albanian JR4 catheter in over wire. EDP Sample taken: LV 69/17,6; HR: 116 BPM; SpO2: 94%. Pullback taken: LV Off; AO 120/75(96); Mean: 0mmHg, Peak to Peak: 0mmHg, SEP: 8sec/min; HR: 85 BPM; SpO2: 94%. Multiple views taken of right coronary artery. Catheter removed over the exchange wire. A TR Band was successful obtaining hemostatsis at the Right Radial artery insertion site. Post Procedure: Pulses reassessed and unchanged. PERRLA. Strong, equal hand reservations and ticketing agent bilaterally. No VTE prophylaxis required. Medication's Wasted: Lidocaine 1% = 1 mL. Medication's Wasted: Nitro = 49.8 mcg. Medication's Wasted: Heparin = 1000 units. Medication's Wasted: Other = Fentanyl 50mcg Versed 1 mg. Total IV fluids: 262 mL. Post-op diagnosis: Normal Coronaries. Complications: None. Estimated blood loss: 5mL-10mL. Responsiveness - Normal response to verbal stimuli; alert and oriented, PERRLA. Airway - Unaffected, no intervention required; spontaneous ventilation. Circulation: W/N/L, pulses unchanged. Nausea/Vomiting: No. Procedure completed. Patient transferred by wheelchair to CPRU. Vital chart was stopped. Access Site Site: Right Radial artery Sheath Size: 6 Fr Hemostasis Method: TR Band Hemostasis Success: Successful Procedure Medications Start: 7:33 AM Stop: 7:33 AM Medication: Versed Amount: 1 mg Route: I.V. Start: 7:33 AM Stop: 7:33 AM Medication: Fentanyl Amount: 50 mcg Route: I.V. Start: 7:43 AM Stop: 7:43 AM Medication: Nitrogylcerin Amount: 200 mcg Route: I.A. Start: 7:46 AM Stop: 7:46 AM Medication: Heparin Amount: 5000 units Route: I.V. Start: 7:40 AM Stop: 7:40 AM Medication: 0.9% Saline Amount: ml Route: I.V. bolus I, the attending physician, have reviewed and verified all procedure medications. Yes, all medications given per verbal order History/Risk Factors Hypertension: Yes Dyslipidemia: No Peripheral Arterial Disease (PAD): No Myocardial Infarction (NE): No Obesity: No Renal Disease: No Tobacco Use: Current/Recent(w/in 1 year) Prior Interventions PCI: No CABG: No Valve Surgery: No Report Signatures Finalized by Vladimir Fu MD on 04/16/2023 11:53 AM
[2023-04-16] MEDS: diphenhydrAMINE 50 mg Capsule PO (06:15)
[2023-04-16] MEDS: aspirin 325 mg Tablet PO (06:15)
[2023-04-16 06:53] LABS: Basophils # 0.1 10^3/uL (0.0-0.1); Basophils % 0.9 %; Eosinophils # 0.3 10^3/uL (0.0-0.8); Eosinophils % 4.6 %; Hematocrit 45.7 % (37-53); Lymphocytes # 1.4 10^3/uL (0.8-4.8); Lymphocytes % 20.5 %; Mean Corpuscular HGB Conc 33.7 g/dL (30-55); Mean Corpuscular Volume 94.8 fl (82-101); Mean Platelet Volume 10.4 fL (7.4-10.4); Monocytes # 0.6 10^3/uL (0.2-0.9); Monocytes % 9.1 %; Neutrophils # 4.53 10^3/uL (1.8-7.7); Neutrophils % 64.6 %; Nucleated Red Blood Cells % 0 %; Platelet Count 146 10^3/cmm (157-399); Red Blood Count 4.82 10^6/uL (3.85-5.65); Red Cell Distribution Width 13.3 % (12.1-15.1); White Blood Count 7.01 10^3/uL (3.29-11.43)
[2023-04-16 07:02] LABS: Blood Urea Nitrogen 19 mg/dL (8-23); Calcium 9.3 mg/dL (8.5-10.5); Carbon Dioxide 29 mmol/L (22-29); Chloride 100 mmol/L (98-107); Glomerular Filtration Rate 50.2 mL/min (90-130); Glucose 105 mg/dL (65-115); Osmolality Calculated 289 mOsm/kg (285-295); Sodium 138 mmol/L (136-145)
--- NOTE | 2023-04-16 07:34 | P.HP_ITS ---
Same Day Surgery H&P Indication for Procedure/HPI DATE OF PROCEDURE: April 16, 2023 CHIEF COMPLAINT/INDICATIONFOR SURGICAL PROCEDURE: Worsening dyspnea on exertion/abnormal stress test PREOP DIAGNOSIS: Worsening dyspnea on exertion/abnormal stress test PLANNED PROCEDURE: Operation Date: 04/16/23 07:00 Proposed Procedures p [facility] w/wo [id number],R94.39,R55,R06.02(Left) - Vladimir Fu M.D Possible percutaneous coronary intervention 67-year-old man with past medical history of hypertension has been having worsening dyspnea on exertion. Also has syncopal episode. He had a stress test performed last year that was mildly abnormal. Medical therapy was pursued at that time. However given worsening dyspnea on exertion, we will proceed with coronary angiogram. Medications/Allergies* Home Medications Medication Instructions Recorded Confirmed Type aspirin 81 mg tablet,delayed 81 mg PO DAILY 11/10/19 04/15/23 History release (Aspir-) tacrolimus 1 mg capsule, 2 mg PO BID 11/10/19 04/15/23 History immediate-release albuterol sulfate 90 mcg/actuation 2 inh inhalation Q6H PRN Allergy 12/06/19 04/16/23 History breath activated powder inhaler Symptoms amlodipine 5 mg tablet 10 mg PO DAILY 10/15/21 04/15/23 History cholecalciferol (vitamin D3) 25 25 mcg PO DAILY 12/05/21 04/15/23 History mcg (1,000 unit) capsule fluticasone 250 mcg-salmeterol 50 1 inh inhalation BID 12/05/21 04/16/23 History mcg/dose blistr powdr for inhalation (Wixela Inhub) folic acid 1 mg tablet 1 mg PO DAILY 12/05/21 04/15/23 History metoprolol tartrate 50 mg tablet 100 mg PO BID 12/05/21 04/15/23 History potassium chloride 20 mEq 40 meq PO BID 12/05/21 04/15/23 History tablet,extended release(part/cryst) furosemide 20 mg tablet 20 mg PO QAM PRN edema 09/04/22 04/15/23 History Allergies/Adverse Reactions Allergy/AdvReac Type Severity Reaction Status Date / Time No Known Allergies Allergy Verified 04/16/23 06:35 Current Medications: Generic Name Dose Route Start Last Admin Trade Name Freq PRN Reason Stop Dose Admin Sodium Chloride 1,000 mls @ 50 mls/hr 04/16/23 06:00 04/16/23 06:35 Sodium Chloride 0.9% IV 04/17/23 01:59 Not Given .Q20H ONE Pertinent History/Comorbid Conditions* Medical History (Updated 09/04/22 @ 16:56 by WILLOW Mayo) Alcohol use disorder, moderate, in sustained remission Colon polyps COPD (chronic obstructive pulmonary disease) History of liver cancer Hypertension Incisional hernia Major depressive disorder, recurrent severe without psychotic features NHL (non-Hodgkin's lymphoma) received chemotherapy Nicotine dependence, cigarettes, with other nicotine-induced disorders Obstructive sleep apnea (adult) (pediatric) Psychiatric care Skin cancer Stage 3 chronic kidney disease Surgical History (Updated 01/16/22 @ 09:30 by Norberto Rashid MD) History of colonoscopy (01/16/22) 5 years History of esophagogastroduodenoscopy (01/16/22) 5 years History of left hip replacement History of open reduction and internal fixation (ORIF) procedure History of repair of anterior cruciate ligament of left knee History of right knee joint replacement History of surgery on lower extremity femur Liver transplant recipient S/P knee replacement S/P skin cancer resection Family History (Updated 12/05/21 @ 13:04 by Emilia Au RN) CAD (coronary artery disease) Brother Sister Hypertension Brother Sister Social History Smoking and tobacco/nicotine status: current every day tobacco/nicotine user Alcohol intake: former Substance/Drug Use: never Pertinent Exam Findings alert, oriented x 3, clear to auscultation bilaterally and regular rate & rhythm Conscious Sedation Assessment PATIENT ASSESSED PRIOR TO SEDATION, WITH NO CHANGE NOTED: Yes AIRWAY EVAL/ANESTHESIA PLAN: normal airway, ASA III, Local Anesthesia, Risks, benefits & alternatives of sedation and/or procedure discussed and Patient agrees to continue as planned ADDITIONAL INFORMATION: Possible percutaneous coronary intervention Recommendations Surgery/Procedure today (Left heart cath with possible percutaneous coronary intervention) Coding Level of Care Code Acute Code for Chg Fwd Diagnoses
--- NOTE | 2023-04-16 08:05 | SUR.PHASEII ---
pain assessment post cath. no pain reported at this time.
--- NOTE | 2023-04-16 08:05 | SUR.PHASEII ---
IV FLUIDS POST CATH IV FLUIDS SET AT 100 ML/HR OF 0.9% NS ORDERED UNTIL D/C HOME TODAY. INFUSING WITHOUT DIFFICULTY.
--- NOTE | 2023-04-16 08:13 | SUR.PHASEII ---
Received patient from laborer operator status post cardiac catheterization via the right radial approach. TR Band in place. Site is hemostatic and free of s/s of hematoma. 15 ML IN BAND. Verbal post cath instructions went over with the patient. He understood well. Call light in reach. Informed to call for needs.
--- NOTE | 2023-04-16 09:15 | SUR.PHASEII ---
TR BAND DEFLATION BEGAN
== END 2023-04-16 12:00 | disposition home or self-care (01) ==
PROVIDERS: PCP Family Medicine; Visit Provider Internal Medicine
DX: I25.10 Atherosclerotic heart disease of native coronary artery without angina pectoris (principal); Z79.82 Long term (current) use of aspirin; J44.9 Chronic obstructive pulmonary disease, unspecified; Z85.05 Personal history of malignant neoplasm of liver; F17.218 Nicotine dependence, cigarettes, with other nicotine-induced disorders; G47.33 Obstructive sleep apnea (adult) (pediatric); I12.9 Hypertensive chronic kidney disease with stage 1 through stage 4 chronic kidney disease, or unspecified chronic kidney disease; N18.30 Chronic kidney disease, stage 3 unspecified
CPT/HCPCS: 36415; 80048; 85025; 93458; 96361; 96365; 99152; 99153; C1769; C1887; C1894; J1644; J2250; J3010; J3490; J7030; Q0163; Q9967

== ENCOUNTER → 2023-04-23 09:36 | Outpatient (BNVA) | payer OTHER, SELFPAY | PROVIDERS: PCP Family Medicine; Visit Provider Nurse Practitioner Family | DX: R55 Syncope and collapse (principal) | CPT/HCPCS: 36415; 80048; 99214 ==

== ENCOUNTER → 2023-05-15 14:36 | Outpatient (BNVA) | payer OTHER, SELFPAY | PROVIDERS: PCP Family Medicine; Visit Provider Internal Medicine Cardiovascular Disease | DX: R06.02 Shortness of breath (principal); I12.9 Hypertensive chronic kidney disease with stage 1 through stage 4 chronic kidney disease, or unspecified chronic kidney disease; N18.30 Chronic kidney disease, stage 3 unspecified; Z94.4 Liver transplant status; J41.0 Simple chronic bronchitis; F17.210 Nicotine dependence, cigarettes, uncomplicated | CPT/HCPCS: 99214 ==

== ENCOUNTER → 2023-06-23 14:13 | Outpatient (BNVA) | payer MEDICARE, SELFPAY | PROVIDERS: PCP Family Medicine; Visit Provider Family Medicine | DX: I10 Essential (primary) hypertension (principal) | CPT/HCPCS: 80048 ==

== ENCOUNTER 2023-08-28 10:46 | Day surgery (SDC) | payer OTHER, SELFPAY ==
--- NOTE | 2023-08-28 10:55 | W.PM.OPSFHP ---
Same Day Surgery H&P Indication for Procedure/HPI DATE OF PROCEDURE: August 28, 2023 CHIEF COMPLAINT/INDICATIONFOR SURGICAL PROCEDURE: history of colon polyps PREOP DIAGNOSIS: hystory of colon polyps PLANNED PROCEDURE: Operation Date: 08/28/23 12:20 Proposed Procedures p 47893 colon, G0121 screen colon A risk K63.5(Not Applicable) - Ray Jean MD Medications/Allergies* Home Medications Medication Instructions Recorded Confirmed Type aspirin 81 mg tablet,delayed 81 mg PO DAILY 11/10/19 08/26/23 History release (Aspir-) albuterol sulfate 90 mcg/actuation 2 inh inhalation Q6H PRN Allergy 12/06/19 08/26/23 History breath activated powder inhaler Symptoms cholecalciferol (vitamin D3) 25 25 mcg PO DAILY 12/05/21 08/26/23 History mcg (1,000 unit) capsule fluticasone 250 mcg-salmeterol 50 1 inh inhalation BID 12/05/21 08/26/23 History mcg/dose blistr powdr for inhalation (Wixela Inhub) folic acid 1 mg tablet 1 mg PO DAILY 12/05/21 08/26/23 History entecavir 1 mg tablet 0.5 mg PO DAILY 05/15/23 08/26/23 History tacrolimus 1 mg capsule, 1 mg PO BID 05/15/23 08/26/23 History immediate-release trazodone 100 mg tablet 150 mg PO DAILY PRN Sleep 06/02/23 08/26/23 History Allergies/Adverse Reactions Allergy/AdvReac Type Severity Reaction Status Date / Time No Known Allergies Allergy Verified 06/23/23 13:53 Pertinent History/Comorbid Conditions* Medical History (Updated 09/04/22 @ 16:56 by WILLOW Mayo) Skin cancer Incisional hernia Colon polyps NHL (non-Hodgkin's lymphoma) received chemotherapy History of liver cancer Psychiatric care Hypertension Stage 3 chronic kidney disease COPD (chronic obstructive pulmonary disease) Obstructive sleep apnea (adult) (pediatric) Nicotine dependence, cigarettes, with other nicotine-induced disorders Alcohol use disorder, moderate, in sustained remission Major depressive disorder, recurrent severe without psychotic features Surgical History (Updated 01/16/22 @ 09:30 by Norberto Rashid MD) S/P knee replacement History of surgery on lower extremity femur S/P skin cancer resection History of colonoscopy (01/16/22) 5 years History of esophagogastroduodenoscopy (01/16/22) 5 years History of open reduction and internal fixation (ORIF) procedure History of repair of anterior cruciate ligament of left knee History of left hip replacement History of right knee joint replacement Liver transplant recipient Family History (Updated 12/05/21 @ 13:04 by Emilia Au RN) CAD (coronary artery disease) Brother Sister Hypertension Brother Sister Social History Smoking and tobacco/nicotine status: current every day tobacco/nicotine user Alcohol intake: former Substance/Drug Use: never Pertinent Exam Findings alert, oriented x 3, clear to auscultation bilaterally and regular rate & rhythm Recommendations Surgery/Procedure today Coding Level of Care Code Acute Code for Genaro Bang
[2023-08-28 11:07] VITALS: BP 140/91; PULSE 74; RESP 18; TEMP 36.7; O2SAT 95
[2023-08-28 11:08] VITALS: BMI 27.1
[2023-08-28] MEDS: sodium chloride 0.9% 1,000 ML 30 ML IV (11:14)
--- NOTE | 2023-08-28 11:20 | ANES.PREANE2 ---
Pre-Anesthetic Assessment Height/Weight: Height 1.8 m Weight 88.451 kg Temp Pulse Resp BP Pulse Ox 98.0 F 74 18 140/91 95 08/28/23 11:07 08/28/23 11:07 08/28/23 11:07 08/28/23 11:07 08/28/23 11:07 Preop Diagnosis: hystory of colon polyps Operation Date: 08/28/23 12:20 Proposed Procedures p 99171 colon, G0121 screen colon A risk K63.5(Not Applicable) - Ray Jean MD Was Beta Tiara taken within 24 hours: Yes Was Clonidine taken within 24 hours: N/A Last intake: Intake Last Liquid Date 08/28/23 Last Liquid Time 23:55 Last Solid Date 08/27/23 Last Solid Time 12:00 Last Intake: 22:00 Social Tobacco 1-1 1/2 pack(s) per day 50 pack years smokes THC last yesterday Exam alert, oriented x 3 and regular rate & rhythm wheezing Airway Submandibular: within normal limits Cervical ROM: within normal limits Mallampati: Class II Dentition: full History/ROS No significant history except as noted Pulmonary Chronic Obstructive Pulmonary Disease emphysema CV/HEM Hypertension Chronic Renal Insufficiency stage 3 Hepatic Hepatitis hep B liver transplant GI None reported Metabolic None reported Musc/skel None reported Neuropsych None reported Anesthetic Plan ASA status: 3 Anesthesia: MAC Risk of > 500 ml blood loss (7ml/kg in children): Yes, adequate IV access and fluids planned Medications/Allergies Home Medications Medication Instructions Recorded Confirmed Last Taken Type aspirin 81 mg tablet,delayed 81 mg PO DAILY 11/10/19 08/26/23 08/26/23 History release (Aspir-) albuterol sulfate 90 mcg/actuation 2 inh inhalation Q6H PRN Allergy 12/06/19 08/26/23 08/26/23 History breath activated powder inhaler Symptoms cholecalciferol (vitamin D3) 25 25 mcg PO DAILY 12/05/21 08/26/23 08/26/23 History mcg (1,000 unit) capsule fluticasone 250 mcg-salmeterol 50 1 inh inhalation BID 12/05/21 08/26/23 08/26/23 History mcg/dose blistr powdr for inhalation ([facility] In[facility]) folic acid 1 mg tablet 1 mg PO DAILY 06/08/26/23 08/26/23 History fluoxetine 40 mg capsule 80 mg (2 x 40 mg) PO DAILY 90 days 05/06/23 08/26/23 08/26/23 Rx #180 caps entecavir 1 mg tablet 0.5 mg PO DAILY 05/15/23 08/26/23 08/26/23 History tacrolimus 1 mg capsule, 1 mg PO BID 05/15/23 08/26/23 08/26/23 History immediate-release amlodipine 10 mg tablet 10 mg PO DAILY 90 days #90 tabs 05/22/23 08/26/23 08/26/23 Rx furosemide 20 mg tablet 20 mg PO QAM PRN edema 90 days #90 05/22/23 08/26/23 2 Weeks Ago Rx tabs ~08/12/23 metoprolol tartrate 100 mg tablet 100 mg PO BID 90 days #180 tabs 05/22/23 08/26/23 08/26/23 Rx nystatin 100,000 unit/gram topical 1 applic topical BID #60 grams 05/22/23 08/26/23 08/26/23 Rx powder trazodone 100 mg tablet 150 mg PO DAILY PRN Sleep 06/02/23 08/26/23 08/26/23 History lisinopril 10 1 tab PO DAILY 90 days #90 tabs 06/23/23 08/26/23 08/26/23 Rx mg-hydrochlorothiazide 12.5 mg tablet Allergies Allergy/AdvReac Type Severity Reaction Status Date / Time No Known Allergies Allergy Verified 08/28/23 11:20 Current Medications Generic Name Dose Route Start Last Admin Trade Name Freq PRN Reason Stop Dose Admin Sodium Chloride 1,000 mls @ 30 mls/hr 08/28/23 11:00 08/28/23 11:14 Sodium Chloride 0.9% IV 08/29/23 10:59 30 mls/hr .Q24H KANG Administration PFSH Anesthesia Medical History Skin cancer Incisional hernia Colon polyps NHL (non-Hodgkin's lymphoma) received chemotherapy History of liver cancer Psychiatric care Hypertension Stage 3 chronic kidney disease COPD (chronic obstructive pulmonary disease) Obstructive sleep apnea (adult) (pediatric) Nicotine dependence, cigarettes, with other nicotine-induced disorders Alcohol use disorder, moderate, in sustained remission Major depressive disorder, recurrent severe without psychotic features Surgical History S/P knee replacement History of surgery on lower extremity femur S/P skin cancer resection History of colonoscopy (01/16/22) 5 years History of esophagogastroduodenoscopy (01/16/22) 5 years History of open reduction and internal fixation (ORIF) procedure History of repair of anterior cruciate ligament of left knee History of left hip replacement History of right knee joint replacement Liver transplant recipient Family History Brother CAD (coronary artery disease) Hypertension Sister CAD (coronary artery disease) Hypertension Social History Smoking and tobacco/nicotine status: current every day tobacco/nicotine user Alcohol intake: former Substance/Drug Use: never Data Anesthesia Cardiac Studies: Echocardiogram 02/01/22 Sestamibi Stress Test (Cardiology) 02/01/22 Cardiac Event Monitor 09/09/22
[2023-08-28 13:01] VITALS: BP 128/79; PULSE 66; RESP 18; TEMP 36.3; O2SAT 98
[2023-08-28 13:08] VITALS: BP 140/99; PULSE 69; RESP 18; TEMP 36.2; O2SAT 97
--- NOTE | 2023-08-28 13:25 | ANE.PACU2 ---
Inpatient post-anesthesia follow up: Airway intact: Yes Vital signs: Temperature 97.2 F Pulse Rate 69 Respiratory Rate 18 Blood Pressure 140/99 Pulse Oximetry 97 Oxygen Delivery Me thod Room Air Oxygen Flow Rate Fraction of Inspir ed Oxygen Hydration adequate: Yes Nausea and vomiting: No Pain level: 1 Mental status: Baseline
== END 2023-08-28 13:28 | disposition home or self-care (01) ==
PROVIDERS: PCP Family Medicine; Visit Provider Surgery
PROC: 0DJD8ZZ Inspection of Lower Intestinal Tract, Via Natural or Artificial Opening Endoscopic (ICD-10-PCS; CPT 45378; principal; 2023-08-28 12:20)
DX: Z12.11 Encounter for screening for malignant neoplasm of colon (principal); Z86.010 Personal history of colon polyps; D12.2 Benign neoplasm of ascending colon; D12.3 Benign neoplasm of transverse colon; Z79.82 Long term (current) use of aspirin; N18.30 Chronic kidney disease, stage 3 unspecified; J44.9 Chronic obstructive pulmonary disease, unspecified; G47.33 Obstructive sleep apnea (adult) (pediatric); F17.210 Nicotine dependence, cigarettes, uncomplicated; I10 Essential (primary) hypertension; Z94.4 Liver transplant status
CPT/HCPCS: 45382; 45385; 88305; J2704; J7030

== ENCOUNTER → 2023-11-13 13:38 | Outpatient (BNVA) | payer OTHER, MEDICARE, SELFPAY | PROVIDERS: PCP Family Medicine; Visit Provider Internal Medicine | DX: R06.02 Shortness of breath (principal); M79.604 Pain in right leg; M79.605 Pain in left leg; I12.9 Hypertensive chronic kidney disease with stage 1 through stage 4 chronic kidney disease, or unspecified chronic kidney disease; N18.30 Chronic kidney disease, stage 3 unspecified; Z94.4 Liver transplant status; G47.33 Obstructive sleep apnea (adult) (pediatric); J41.0 Simple chronic bronchitis; M17.12 Unilateral primary osteoarthritis, left knee; F17.200 Nicotine dependence, unspecified, uncomplicated | CPT/HCPCS: 99214 ==

== ENCOUNTER 2023-12-05 10:00 | Outpatient (CLI) | payer OTHER, SELFPAY ==
--- NOTE | 2023-12-05 10:30 | USCV_ITS ---
Epi Macias Age: 67 Gender: M : 1955 Exam Date: 12/05/2023 10:37 Ordering Phys: Vladimir Fu M.D ([email or web address]) Technologist: Juanito Valverde [place] [facility] [place]: bilateral [place] pain PROCEDURES: Venous duplex imaging was performed in bilateral lower extremities. The following venous structures were evaluated: common femoral vein, profunda vein, proximal portion of the greater saphenous vein, superficial femoral vein, and the popliteal vein. In addition, the posterior tibial and peroneal trunk were evaluated. Serial compression, augmentation maneuvers, and spectral Doppler flow evaluation were performed. FINDINGS: Normal 2-D Doppler and augmentation and compressibility throughout the lower extremity venous structures. Additional imaging through the proximal calf veins also reveals no thrombus. Limited evaluation of the greater saphenous vein is patent with no thrombus. CONCLUSIONS No evidence of right lower extremity DVT. No evidence of left lower extremity DVT. Endy Doshi MD (Electronically Signed) Final Date: 05 December 2023 11:45 S
== END 2023-12-05 10:01 | disposition home or self-care (01) ==
LOC: RAD 10:00
PROVIDERS: PCP Family Medicine; Visit Provider Internal Medicine
DX: M79.604 Pain in right leg (principal); M79.605 Pain in left leg
CPT/HCPCS: 93970

== ENCOUNTER → 2024-04-19 09:43 | Outpatient (BNVA) | payer MEDICARE, SELFPAY | PROVIDERS: PCP Family Medicine; Referring Provider Family Medicine; Visit Provider Nurse Practitioner Family | DX: D48.5 Neoplasm of uncertain behavior of skin (principal); L57.8 Other skin changes due to chronic exposure to nonionizing radiation; L57.0 Actinic keratosis; L82.1 Other seborrheic keratosis; T45.1X5A Adverse effect of antineoplastic and immunosuppressive drugs, initial encounter; X58.XXXA Exposure to other specified factors, initial encounter; Z85.828 Personal history of other malignant neoplasm of skin | CPT/HCPCS: 11102; 17000; 99203 ==

== ENCOUNTER → 2024-09-23 08:00 | Outpatient (BNVA) | payer MEDICARE, SELFPAY | PROVIDERS: PCP Family Medicine; Visit Provider Dermatology | DX: L82.1 Other seborrheic keratosis (principal); L72.0 Epidermal cyst; Z92.25 Personal history of immunosuppression therapy; C44.622 Squamous cell carcinoma of skin of right upper limb, including shoulder; D48.5 Neoplasm of uncertain behavior of skin; L57.0 Actinic keratosis | CPT/HCPCS: 11102; 17000; 17260; 69100; 99213 ==

== ENCOUNTER → 2024-10-12 09:26 | Outpatient (BNVA) | payer MEDICARE, SELFPAY | PROVIDERS: PCP Family Medicine; Visit Provider Dermatology | DX: C44.222 Squamous cell carcinoma of skin of right ear and external auricular canal (principal); C44.42 Squamous cell carcinoma of skin of scalp and neck | CPT/HCPCS: 13121; 15260; 17311 ==

== ENCOUNTER → 2024-10-19 14:19 | Outpatient (BNVA) | payer OTHER, SELFPAY | PROVIDERS: PCP Family Medicine; Visit Provider Internal Medicine | DX: R06.02 Shortness of breath (principal); I12.9 Hypertensive chronic kidney disease with stage 1 through stage 4 chronic kidney disease, or unspecified chronic kidney disease; N18.30 Chronic kidney disease, stage 3 unspecified; G47.33 Obstructive sleep apnea (adult) (pediatric); J41.0 Simple chronic bronchitis; M17.12 Unilateral primary osteoarthritis, left knee; Z79.82 Long term (current) use of aspirin; Z94.4 Liver transplant status; F17.200 Nicotine dependence, unspecified, uncomplicated | CPT/HCPCS: 99213 ==

== ENCOUNTER → 2024-10-25 11:26 | Outpatient (BNVA) | payer MEDICARE, SELFPAY | PROVIDERS: PCP Family Medicine; Visit Provider Dermatology | DX: C44.222 Squamous cell carcinoma of skin of right ear and external auricular canal (principal); C44.42 Squamous cell carcinoma of skin of scalp and neck; Z48.02 Encounter for removal of sutures; L72.0 Epidermal cyst | CPT/HCPCS: 10060; 99212 ==

== ENCOUNTER → 2024-11-09 14:52 | Outpatient (BNVA) | payer MEDICARE, SELFPAY | PROVIDERS: PCP Family Medicine; Visit Provider Dermatology | DX: C44.222 Squamous cell carcinoma of skin of right ear and external auricular canal (principal); C44.42 Squamous cell carcinoma of skin of scalp and neck; Z92.25 Personal history of immunosuppression therapy; L57.0 Actinic keratosis | CPT/HCPCS: 17000; 99213 ==

== ENCOUNTER → 2024-12-07 09:26 | Outpatient (BNVA) | payer MEDICARE, SELFPAY | PROVIDERS: PCP Family Medicine; Visit Provider Surgery | DX: Z12.11 Encounter for screening for malignant neoplasm of colon (principal) | CPT/HCPCS: 99024; 99213 ==

== ENCOUNTER → 2025-01-18 09:49 | Outpatient (BNVA) | payer MEDICARE, SELFPAY | PROVIDERS: PCP Family Medicine; Visit Provider Family Medicine | DX: I10 Essential (primary) hypertension (principal); E87.6 Hypokalemia; N18.30 Chronic kidney disease, stage 3 unspecified | CPT/HCPCS: 80053; 80061; 85025 ==

== ENCOUNTER → 2025-02-03 10:51 | Outpatient (BNVA) | payer MEDICARE, SELFPAY | PROVIDERS: PCP Family Medicine; Visit Provider Dermatology | DX: D69.2 Other nonthrombocytopenic purpura (principal); Z92.25 Personal history of immunosuppression therapy; Z08 Encounter for follow-up examination after completed treatment for malignant neoplasm; Z85.828 Personal history of other malignant neoplasm of skin; B07.8 Other viral warts; L29.89 Other pruritus; L53.8 Other specified erythematous conditions; D48.5 Neoplasm of uncertain behavior of skin; L57.0 Actinic keratosis | CPT/HCPCS: 11102; 17000; 17110; 40490; 99213 ==

== ENCOUNTER → 2025-03-03 08:00 | Outpatient (BNVA) | payer MEDICARE, SELFPAY | PROVIDERS: PCP Family Medicine; Visit Provider Dermatology | DX: D37.01 Neoplasm of uncertain behavior of lip (principal); Z92.25 Personal history of immunosuppression therapy; Z08 Encounter for follow-up examination after completed treatment for malignant neoplasm; Z85.828 Personal history of other malignant neoplasm of skin; C44.42 Squamous cell carcinoma of skin of scalp and neck; L57.0 Actinic keratosis | CPT/HCPCS: 13121; 17000; 17311; 99213 ==

== ENCOUNTER → 2025-05-30 10:45 | Outpatient (BNVA) | payer MEDICARE, SELFPAY | PROVIDERS: PCP Family Medicine; Visit Provider Dermatology | DX: Z92.25 Personal history of immunosuppression therapy (principal); Z08 Encounter for follow-up examination after completed treatment for malignant neoplasm; Z85.828 Personal history of other malignant neoplasm of skin; D48.5 Neoplasm of uncertain behavior of skin; L57.0 Actinic keratosis | CPT/HCPCS: 11102; 17000; 99213 ==